=== PATIENT | female | born 1995 | race Caucasian/White ===

== ENCOUNTER 2016-12-18 04:39 | Outpatient (CLI) | payer OTHER ==
[~2016-12-18] VITALS: Ht 162.6 cm; Wt 87.3 kg
[~2016-12-18 04:39] MED LIST: CEPH-443 PO; CIPR500T4 PO; HYDR-3498 PO; IBUP-1542 PO; IBUP800T25 PO; ONDA4TAB35 PO
[2016-12-18] MEDS ORDERED: LACTATED RINGER'S 1,000 ML IV SCH (05:15)
[2016-12-18 05:29] VITALS: Ht 162.6 cm; Wt 87.3 kg
[2016-12-18 05:29] LABS: WHITE BLOOD COUNT 10.9 10^3/ul (4.8-10.8)
[2016-12-18 05:33] VITALS: BP 120/67; PULSE 121; RESP 18
[2016-12-18 05:36] LABS: ADD UMIC YES; UR ASCORBIC ACID NEGATIVE (NEGATIVE); UR BILIRUBIN (Dip) NEGATIVE (NEGATIVE); UR BLOOD (Dip) NEGATIVE (NEGATIVE); UR CLARITY SLIGHTLY CLOUDY (CLEAR); UR COLOR YELLOW (YELLOW); UR GLUCOSE (Dip) NEGATIVE (NEGATIVE); UR KETONES (Dip) NEGATIVE (NEGATIVE); UR LEUKOCYTE ESTERASE (Dip) TRACE Leu/ul (NEGATIVE); UR NITRITE (Dip) NEGATIVE (NEGATIVE); UR RBC 0 /HPF (0-5); UR SPECIFIC GRAVITY (Dip) 1.017 (1.003-1.030); UR SQUAMOUS EPITHELIAL CELL FEW /HPF (FEW); UR TOTAL PROTEIN (Dip) NEGATIVE (NEGATIVE); UR UROBILINOGEN (Dip) NEGATIVE (NEGATIVE)
[2016-12-18 05:56] LABS: HEMOGLOBIN 10.7 g/dl (12.0-16.0); MEAN CORPUSCULAR HEMOGLOBIN 31.5 pg (29.0-33.0); MEAN CORPUSCULAR HGB CONC 35.7 g/dl (32.0-37.0); MEAN CORPUSCULAR VOLUME 88.2 fl (82.0-101.0); PLATELET COUNT 123 10^3/UL (140-415)
[2016-12-18 05:57] LABS: MEAN PLATELET VOLUME 11.8 fl (7.4-10.4); POSITIVE DIFF @See below
[2016-12-18] MEDS ORDERED: ACETAMINOPHEN 325 MG TAB PO STA ×3 (07:02→07:24)
[2016-12-18 07:04] LABS: MONOCYTE # 0.3 10^3/ul (0.3-0.9); MONOCYTES % (M) 3 % (0-11)
--- NOTE | 2016-12-18 10:13 | RADRPT ---
PROCEDURE: Renal US. CLINICAL INDICATION: Left flank pain TECHNIQUE: Multiple sonographic images of the kidneys were obtained. The images were reviewed on a PACS workstation. COMPARISON: No prior studies are available for comparison. FINDINGS: The kidneys are well visualized. The right kidney measures 10.5 cm. The left kidney measures 10.3 cm . There are no focal areas of abnormal echogenicity. There is no evidence for obstructive uropathy. IMPRESSION: Unremarkable renal ultrasound. Incidental noted mild hepatosplenomegaly. RPTAT: QQ Physician Denise Date Time Electronically viewed and signed by Physician Denise on 12/18/2016 10:13 /
--- NOTE | 2016-12-18 10:41 | CONS ---
Date/Time of Note Date/Time of Note DATE: 12/18/16 TIME: 10:32 Consultation Date/Type/Reason Admit Date/Time December 18, 2016 OB triage consult This patient is a 21 years old 3 para 2 with estimated date of confinement of April 14, 2017 which makes her 23 weeks and 2 days. She came to triage complaining of flank pain since yesterday no complaint of contractions vaginal bleeding dysuria. On examination she is somewhat overweight with body weight of 87 pound on 0.3 kg. Her main complaint is back pain mostly on the left flank area On examination her general vital signs appear to be normal with blood pressure 120/67 pulse rate 122 and temperature 1 measurement was 100.8 and then in the second 1 Was came back with 98.4 heart tones around 140. Note pattern of labor or frequent contraction noted on the examination of this patient Laboratory Tests Test 12/18/16 05:00 12/18/16 05:14 Urine Color YELLOW Urine Clarity SLIGHTLY CLOUDY Urine pH 5.0 Urine Specific [place] 1.017 Urine Ketones NEGATIVEmg/dL Urine Nitrite NEGATIVEmg/dL Urine Bilirubin NEGATIVEmg/dL Urine Urobilinogen NEGATIVEmg/dL Urine Leukocyte Esterase TRACELeu/ul Urine Microscopic RBC 0/HPF Urine Microscopic WBC 2/HPF Urine Squamous Epithelial Cells FEW/HPF Urine Hemoglobin NEGATIVEmg/dL Urine Glucose NEGATIVEmg/dL Urine Total Protein NEGATIVEmg/dl White Blood Count 10.910^3/ul Red Blood Count 3.4010^6/ul Hemoglobin 10.7g/dl Hematocrit 30.0% Mean Corpuscular Volume 88.2fl Mean Corpuscular Hemoglobin 31.5pg Mean Corpuscular Hemoglobin Concent 35.7g/dl Red Cell Distribution Width 15.0% Platelet Count 35366^3/UL Mean Platelet Volume 11.8fl Neutrophils % % Segmented Neutrophils % (Manual) 88% Lymphocytes % % Lymphocytes % (Manual) 9% Monocytes % % Monocytes % (Manual) 3% Eosinophils % % Basophils % % Nucleated Red Blood Cells % 0.0/100WBC Neutrophils # 10^3/ul Absolute Lymphocytes (Manual) 0.910^3/ul Lymphocytes # 1.010^3/ul Monocytes # 0.310^3/ul Absolute Monocytes (Manual) 0.310^3/ul Eosinophils # 10^3/ul Basophils # 10^3/ul Nucleated Red Blood Cells # 10^3/ul Current Medications Medications (Trade) Dose Ordered Sig/Denise Route PRN Reason Start Time Stop Time Status Last Admin Dose Admin Lactated Ringer's (Lr) 1,000 ml @ 125 mls/hr Q8H IV 12/18/16 05:15 12/18/16 07:46 125 MLS/HR Acetaminophen (Tylenol Tab) 650 mg ONCE STAT PO 12/18/16 07:02 12/18/16 07:06 DC 12/18/16 07:47 650 MG Acetaminophen (Tylenol Tab) 650 mg ONCE STAT PO 12/18/16 07:14 12/18/16 09:18 DC Acetaminophen (Tylenol Tab) 650 mg ONCE STAT PO 12/18/16 07:24 12/18/16 09:18 DC Constitutional: No chills, No diaphoresis, No disoriented, No febrile, No improved, No no complaints, No other, No poor po, No requiring IVF, No requiring O2 Eyes: No discharge, No no complaints, No other, No pain, No redness, No visual change ENT: No bleeding, No congestion, No discharge, No dysphagia, No no complaints, No other, No pain, No sore throat Respiratory: No cough, No no complaints, No other, No pain, No pleuritic pain, No shortness of breath, No sputum, No wheezing Cardiovascular: No chest pain, No edema, No lightheadedness, No no complaints, No orthopenea, No other, No palpitations, No paroxysmal nocturnal dyspnea Gastrointestinal: other (No CVA tenderness), No blood, No constipation, No decreased appetite, No diarrhea, No flatus, No nausea, No no complaints, No pain, No passing stool, No vomiting Genitourinary: No bleeding, No discharge, No dysuria, No flank pain, No hematuria, No no complaints, No other Musculoskeletal: No back pain, No bone/joint pain, No neck pain, No no complaints, No other, No restricted range of motion, No swelling Skin: No bruising, No erythema, No laceration, No no complaints, No other, No pruritis, No rash, No skin lesions Neurologic: other (Knee-jerk reflexes normal), No confusion, No dizziness, No focal-weakness, No headache, No no complaints , No seizure, No syncope Endocrine: No dry skin, No no complaints, No other, No polydypsia, No polyuria , No temp intolerance Lymphatic: No adenopathy, No lymphadema, No no complaints, No other, No tender nodes Additional Comments On ultrasound study there was no evidence of hydro-nephrosis the spleen was reported slightly enlarged the urinalysis showed WBCs but no protein . Her CBC did show evidence of mild anemia W BC was about 10,000 Otherwise the urine and blood test as well as ultrasound were normal. Disposition. A prescription given for Macrobid 100 mg tablet to be taken twice a day. Clean- catch urine specimen was sent for culture and sensitivity. Patient is advised to continue taking her antibiotic and check for with her physician regarding the results of culture and sensitivity in 2 days to adjust the antibiotic treatment accordingly. Social History Smoking Status: Never smoker Exam/Review of Systems Vital Signs Vitals Vital Signs Date Time Temp Pulse Resp B/P Pulse Ox O2 Delivery O2 Flow Rate FiO2 12/18/16 05:33 98.4 121 18 120/67 Room Air Results Result Diagram: 12/18/16 0514 Results 24 hrs Laboratory Tests Test 12/18/16 05:00 12/18/16 05:14 Urine Color YELLOW Urine Clarity SLIGHTLY CLOUDY A Urine pH 5.0 Urine Specific [place] 1.017 Urine Ketones NEGATIVE Urine Nitrite NEGATIVE Urine Bilirubin NEGATIVE Urine Urobilinogen NEGATIVE Urine Leukocyte Esterase TRACE A Urine Microscopic RBC 0 Urine Microscopic WBC 2 Urine Squamous Epithelial Cells FEW Urine Hemoglobin NEGATIVE Urine Glucose NEGATIVE Urine Total Protein NEGATIVE White Blood Count 10.9 H Red Blood Count 3.40 L Hemoglobin 10.7 L Hematocrit 30.0 L Mean Corpuscular Volume 88.2 Mean Corpuscular Hemoglobin 31.5 Mean Corpuscular Hemoglobin Concent 35.7 Red Cell Distribution Width 15.0 H Platelet Count 123 L Mean Platelet Volume 11.8 H Neutrophils % Segmented Neutrophils % (Manual) 88 H Lymphocytes % Lymphocytes % (Manual) 9 L Monocytes % Monocytes % (Manual) 3 Eosinophils % Basophils % Nucleated Red Blood Cells % 0.0 Neutrophils # Absolute Lymphocytes (Manual) 0.9 Lymphocytes # 1.0 Monocytes # 0.3 Absolute Monocytes (Manual) 0.3 Eosinophils # Basophils # Nucleated Red Blood Cells # Medications Medications Current Medications Lactated Ringer's (Lr) 1,000 ml @ 125 mls/hr Q8H IV Last administered on 07:46; Admin Dose 125 MLS/HR; Start 12/18/16 at 05:15 JAY DEL ROSARIO MD Dec 18, 2016 10:41
--- NOTE | 2016-12-18 10:52 | TRIAGE ---
OB Triage Datetime Report Generated by CPN: 12/18/2016 10:51 Datetime: 12/18/2016 10:15 Stage of : OB Triage Labor Evaluation Frequency: 0 Monitor Mode: External Datetime: 12/18/2016 08:30 Stage of : OB Triage Temperature Route: Oral Labor Evaluation Frequency: 0 Monitor Mode: External Heart Rate FHR Baseline Rate: 150 Monitor Mode: Doppler Pain Assessment Pain Scale: 2 Pain Presence: Constant (Annotations: REDUCED DUE TO TYLENOL PER PT.) Pain Type: Dull; Ache Pain Location: Abdomen; Back; Head Pain Goal: 3 Pain Relief Measures: Comfort Measures (Annotations: MED TYLENOL WAS GIVEN AT 0747) Datetime: 12/18/2016 08:00 Stage of : OB Triage Datetime: 12/18/2016 06:50 Stage of : OB Triage Datetime: 12/18/2016 06:49 Labor Evaluation Frequency: 0 Monitor Mode: External Resting Tone [place]: Relaxed Datetime: 12/18/2016 06:07 Stage of : Labor Temperature Route: Oral Datetime: 12/18/2016 06:00 Stage of : OB Triage Labor Evaluation Frequency: NONE Monitor Mode: External Datetime: 12/18/2016 05:49 Stage of : OB Triage Temperature Route: Oral Datetime: 12/18/2016 05:25 EGA: 23.2 Datetime: 12/18/2016 05:23 Time of Arrival: 12/18/2016 04:40 Arrived By: Wheelchair Arrived From: Home Chief Complaint: PT C/O RIGH FLANK PAIN Movement: Present Contractions: Denies/Absent Rupture of Membranes: Denies Vaginal Bleeding: None Vaginal Discharge: Denies Recent Sexual Intercouse: Denies Abdominal Trauma: Not Applicable Patient Complaints: Back Pain Time Provider Notified: 12/18/2016 05:05 Provider Notified: uaje Initial Plan: TOCO AND DOPPLAR, NOTIFY MD Datetime: 12/18/2016 05:16 Stage of : OB Triage Maternal Assessment Level of Consciousness: Fully Conscious DTR's/Clonus: DTRs 2+; No Clonus Headache: Denies Blurred Vision: No Respiratory Effort: Unlabored; Regular Rhythm; Equal Expansion Breath Sounds, Left: Clear and Equal Breath Sounds, Right: Clear and Equal Nausea/Vomiting: Denies RUQ Epigastric Pain: Denies Lower Extremities Edema: None Upper Extremities Edema: None Facial Edema: None Temperature Route: Oral Fall Risk Assessment History of Falling: (0) No Secondary Diagnosis: (0) No Ambulatory Aid: (0) Bedrest/Nurse Assist IV Therapy: (0) No Gait: (0) Normal/Bedrest/Immobile Mental Status: (0) Oriented to Own Ability Fall Score: 0 Fall Risk Score Definition: No Risk: No action required Labor Evaluation Frequency: NONE Monitor Mode: External Heart Rate FHR Baseline Rate: 148 Monitor Mode: Doppler Pain Assessment Pain Scale: 8 Pain Presence: Constant Pain Type: Sharp Pain Location: Back Pain Goal: 3 Pain Relief Measures: Comfort Measures Datetime: 12/18/2016 05:15 Stage of : OB Triage
[2016-12-19] MEDS ORDERED: NITR-58 PO (17:11)
[2016-12-19] MEDS ORDERED: PREN1TAB79 PO (17:21)
== END 2016-12-18 10:33 | disposition home or self-care (01) ==
LOC: OBT 04:39 → L-D 04:40 → OBT 06:22 → L-D 06:22 → UNDOADMIN 06:25 → OBT 10:33
PROVIDERS: ATTEND Obstetrics & Gynecology
DX: O26.892 Other specified pregnancy related conditions, second trimester (principal); Z3A.23 23 weeks gestation of pregnancy
CPT/HCPCS: 36415; 76775; 81001; 85025; 87086; 96360; 96361; J7120; Z7500; Z7610; G0463

== ENCOUNTER 2016-12-19 16:36 | Inpatient (IN) | payer OTHER ==
[~2016-12-19] VITALS: Ht 154.9 cm; Wt 88.0 kg
[~2016-12-19 16:36] MED LIST changes: -CEPH-443 PO
[2016-12-19 16:55] VITALS: Ht 154.9 cm; Wt 88.0 kg
[2016-12-19 16:57] VITALS: BP 109/54; PULSE 120; RESP 20
[2016-12-19] MEDS ORDERED: NITR-58 PO (17:11)
[2016-12-19] MEDS ORDERED: LACTATED RINGER'S 1,000 ML IV SCH (17:21)
[2016-12-19] MEDS ORDERED: PREN1TAB79 PO (17:21)
--- NOTE | 2016-12-19 17:49 | TRIAGE ---
OB Triage Datetime Report Generated by CPN: 12/19/2016 17:49 Datetime: 12/19/2016 17:22 Arrived By: Ambulatory Arrived From: Home Datetime: 12/19/2016 17:03 Time of Arrival: 12/19/2016 16:45 EGA: 23.3 Arrived By: Wheelchair Arrived From: Home Chief Complaint: BI LATERAL FLANK PAIN AND FEVER Movement: Present Contractions: Denies/Absent Rupture of Membranes: Denies Vaginal Bleeding: None Vaginal Discharge: Denies Recent Sexual Intercouse: Denies Abdominal Trauma: Not Applicable Patient Complaints: Fever; Other Provider Notified: DR LEA Initial Plan: EFM AND CALL DR LEA Datetime: 12/19/2016 17:02 Level of Consciousness: Fully Conscious DTR's/Clonus: DTRs 2+; No Clonus Headache: Denies Blurred Vision: No Respiratory Effort: Unlabored; Regular Rhythm; Equal Expansion Breath Sounds, Left: Clear and Equal Breath Sounds, Right: Clear and Equal Nausea/Vomiting: Denies RUQ Epigastric Pain: Denies Facial Edema: None Temperature Route: Axillary History of Falling: (0) No Secondary Diagnosis: (0) No Ambulatory Aid: (0) Bedrest/Nurse Assist IV Therapy: (0) No Gait: (0) Normal/Bedrest/Immobile Mental Status: (0) Oriented to Own Ability Fall Score: 0 Fall Risk Score Definition: No Risk: No action required Datetime: 12/19/2016 16:42 Level of Consciousness: Fully Conscious DTR's/Clonus: DTRs 2+ Headache: Denies Blurred Vision: No Nausea/Vomiting: Denies RUQ Epigastric Pain: Denies Facial Edema: None Frequency: MILD IRREG FHR Baseline Rate: 170 FHR Baseline Changes: Tachycardia Variability: Minimal - Undetectable to <=5 bpm Pain Scale: 8 Pain Presence: Constant Pain Type: Sharp Pain Location: Right Flank; Left Flank Membrane Status: Intact Datetime: 12/18/2016 05:25 EGA: 23.2
--- NOTE | 2016-12-19 18:04 | HP ---
Date/Time of Note Date/Time of Note DATE: 12/19/16 TIME: 17:47 OB - History Hx of Present Free Text/Dictation 21 y/o ADMITTED WITH CHIEF COMPLAIN OF LOW BACK PAIN VS BP 109/54 P120 R22 TEMP 99,[id number] Chief Complaint: LOW BACK PAIN ,CHILLS Estimated Due Date: Apr 14, 2017 : 3 Para: 2 Care: Limited Care Ultrasounds: Other ([place]) Obstetrical Complications: None Medical Complications: None Past Family/Social History * Past Medical, Surgical, Family and Obstetric Histories reviewed from chart. Rubella: unknown RPR/VDRL: Unknown GBS Status: Unknown HBsAG: Unknown OB Admission Exam Vital Signs Vital Signs Vital Signs Date Time Temp Pulse Resp B/P Pulse Ox O2 Delivery O2 Flow Rate FiO2 12/19/16 16:57 99.1 120 20 109/54 98 Room Air Physical Exam HEENT: WNL Heart: Rhythm Normal Lungs: Clear, Equal Abdomen: Abnormal (BILATERAL FLANK PAIN) Extremities: Normal Reflexes: Normal Cervical Dilatation: None Membranes: Intact Heart Rate: 150's Varibility: Moderate OB Assessment/Plan Reason for admission: other (LOW BACK PAIN ,CHILLS ) Plan: Other (21Y/O 23 WEEKS .NARDA PECTED PYLONEPHRITIS ADMITTED FOR TRAETMENT OF UTI) YU LEA MD Dec 19, 2016 18:00
[2016-12-19] MEDS ORDERED: morphine 4 MG/ML VIAL IV STA (18:27)
[2016-12-19] MEDS: SOD CHLORIDE 0.9% 1,000 ML IV SCH (18:31)
[2016-12-19] MEDS: CEFTRIAXONE 2 GM/50 ML (PMX) 50 ML IVPB SCH (18:31)
[2016-12-19] MEDS: ACETAMINOPHEN 325 MG TAB PO PRN ×2 (18:38→22:30)
[2016-12-19 18:40] LABS: ABNORMAL IP MESSAGE 1; BASOPHILS % 0.1 % (0.0-2.0); HEMATOCRIT 26.2 % (37.0-47.0); HEMOGLOBIN 9.3 g/dl (12.0-16.0); LYMPHOCYTES # 0.6 10^3/ul (0.8-2.9); MEAN CORPUSCULAR HEMOGLOBIN 31.3 pg (29.0-33.0); MEAN CORPUSCULAR HGB CONC 35.5 g/dl (32.0-37.0); MEAN CORPUSCULAR VOLUME 88.2 fl (82.0-101.0); MEAN PLATELET VOLUME 11.7 fl (7.4-10.4); MONOCYTE # 0.3 10^3/ul (0.3-0.9); MONOCYTES % 3.3 % (0.0-11.0); NEUTROPHILS % 89.2 % (39.0-77.0); PLATELET COUNT 97 10^3/UL (140-415); RED BLOOD COUNT 2.97 10^6/ul (4.20-5.40); RED CELL DISTRIBUTION WIDTH 14.9 % (11.5-14.5); WHITE BLOOD COUNT 7.9 10^3/ul (4.8-10.8)
[2016-12-19 18:43] LABS: POSITIVE DIFF @See below
[2016-12-19 18:52] LABS: ADD UMIC NO; UR ASCORBIC ACID NEGATIVE (NEGATIVE); UR BILIRUBIN (Dip) NEGATIVE (NEGATIVE); UR BLOOD (Dip) NEGATIVE (NEGATIVE); UR CLARITY CLEAR (CLEAR); UR COLOR YELLOW (YELLOW); UR GLUCOSE (Dip) NEGATIVE (NEGATIVE); UR KETONES (Dip) 1+ mg/dL (NEGATIVE); UR LEUKOCYTE ESTERASE (Dip) NEGATIVE Leu/ul (NEGATIVE); UR NITRITE (Dip) NEGATIVE (NEGATIVE); UR SPECIFIC GRAVITY (Dip) 1.013 (1.003-1.030); UR TOTAL PROTEIN (Dip) NEGATIVE (NEGATIVE); UR UROBILINOGEN (Dip) NEGATIVE (NEGATIVE)
[2016-12-20] MEDS: SOD CHLORIDE 0.9% 1,000 ML IV SCH ×3 (02:09→18:17)
[2016-12-20] MEDS: ACETAMINOPHEN 325 MG TAB PO PRN ×3 (04:08→23:55)
--- NOTE | 2016-12-20 09:11 | QN ---
Documentation Comment afebrile ,but still getting chills, last one at 0400 today,complaining of low back pain ,left cva tenderness ,c/s report not conclusive .currently on Rocephin 2gm q d.,perinatology consult requested. YU LEA MD Dec 20, 2016 09:10
[2016-12-20] MEDS: GENTAMICIN 80 MG/NS (PMX) 50 ML IVPB SCH ×2 (10:00→18:57)
[2016-12-20] MEDS: PRENATAL VITAMIN PO SCH (10:07)
[2016-12-20] MEDS: ONDANSETRON 4 MG INJ IV PRN (10:59)
[2016-12-20 15:39] LABS: ALBUMIN/GLOBULIN RATIO 1.15; BILIRUBIN,INDIRECT 0.9 mg/dl (0-1.1); BILIRUBIN,TOTAL 0.9 mg/dl (0.2-1.3); CALCIUM 7.9 mg/dl (8.4-10.2); CREATININE 0.6 mg/dl (0.44-1.00); POTASSIUM 3.6 mmol/L (3.5-5.1); TOTAL PROTEIN 5.6 g/dl (6.1-8.1)
[2016-12-20] MEDS: CEFTRIAXONE 2 GM/50 ML (PMX) 50 ML IVPB SCH (17:54)
[2016-12-21] MEDS: GENTAMICIN 80 MG/NS (PMX) 50 ML IVPB SCH ×3 (01:54→17:45)
[2016-12-21] MEDS: SOD CHLORIDE 0.9% 1,000 ML IV SCH ×4 (03:32→22:25)
[2016-12-21] MEDS: PRENATAL VITAMIN PO SCH (09:22)
[2016-12-21] MEDS: CEFTRIAXONE 2 GM/50 ML (PMX) 50 ML IVPB SCH (17:05)
--- NOTE | 2016-12-21 17:23 | QN ---
Documentation Comment afebrile no more low back or flank pain UA culture preliminary negative currently on ROCEPHIN responded well we wait for final urine culture and sensitivity result YU LEA MD Dec 21, 2016 17:23
[2016-12-21] MEDS: ACETAMINOPHEN 325 MG TAB PO PRN (18:44)
--- NOTE | 2016-12-21 18:54 | CONS ---
DATE OF ADMISSION: 12/19/2016 DATE OF CONSULTATION: 12/21/2016 HISTORY OF PRESENT ILLNESS: The patient is a 21-year-old, G2, P1, at 23 weeks and 5 days who presented the day before yesterday with complaint of back pain, fever and chills. She was diagnosed presumptively with pyelonephritis and started on Rocephin and gentamicin. Her last fever was on December 19 at 7 p.m., since then she has been afebrile. Today, however, she still complains of a CVA, back pain, left more than right. But overall, she states that it is not worse today. PAST MEDICAL HISTORY/SURGICAL HISTORY/OB HISTORY: Negative. REVIEW OF SYSTEMS: Reviewed and all are negative, except was mentioned above. PHYSICAL EXAMINATION: VITAL SIGNS: Temperature is 98.7. ABDOMEN: CVA tenderness bilaterally, left more than right. LABORATORY: Urine cultures, the first urine culture showed that there is contamination. There for cath UA and culture was ordered again yesterday, those results are pending. OB: heart tone is reassuring for gestational age. She has no contractions. IMPRESSION: 1. Intrauterine at 26 weeks and 5 days with pyelonephritis on Rocephin and gentamicin, febrile for currently less than 48 hours, however costal vertebral angle (CVA) tenderness still persists. 2. Urine culture pending. RECOMMENDATIONS: 1. Follow up on the urine culture results and sensitivities and change antibiotic if required. 2. The patient is only to be discharged home after she is 48 hours afebrile and asymptomatic. 3. Upon discharge, patient is to have a UA and culture every trimester. 4. Also please check creatinine just because she has been given gentamicin. Dictated By: Dulce Magana MD /elias/justyna /Document#: [id number]
[2016-12-22] MEDS: GENTAMICIN 80 MG/NS (PMX) 50 ML IVPB SCH ×3 (02:04→17:59)
[2016-12-22] MEDS: SOD CHLORIDE 0.9% 1,000 ML IV SCH ×2 (07:58→15:49)
[2016-12-22] MEDS: ONDANSETRON 4 MG INJ IV PRN (08:57)
[2016-12-22] MEDS: PRENATAL VITAMIN PO SCH (09:48)
--- NOTE | 2016-12-22 10:20 | QN ---
Documentation Comment afebrile vss no more complain of back pain,in general feels better, preliminary urine culture day 2 ,no growth YU LEA MD Dec 22, 2016 10:20
--- NOTE | 2016-12-22 16:57 | PN ---
Triage Information Date/Time Dec 19, 2016 at 17:15 Reason for visit: Uterine contractions Weeks of Gestation 23weeks /Para Diabetes: none Objective Vital Signs Date Time Temp Pulse Resp B/P Pulse Ox O2 Delivery O2 Flow Rate FiO2 12/19/16 16:57 99.1 120 20 109/54 98 Room Air Intake and Output 12/21/16 12/21/16 12/22/16 15:00 23:00 07:00 Intake Total 3110 ml 625 ml Output Total 1700 ml 1000 ml 500 ml Balance 1410 ml -375 ml -500 ml Heart Rate: 130's Contractions: >10 Minutes Apart Results/Medications Result Diagram: 12/19/16 1823 12/20/16 1432 Medications Current Medications Prenat Multivit/ [place]/Iron/Folic Ac () 1 tab DAILY PO Last administered on 12/22/16 09:48; Admin Dose 1 TAB; Start 12/20/16 at 09:00 Acetaminophen 650 mg 650 mg Q4H PRN PO PAIN AND OR ELEVATED TEMP Last administered on 12/21/16 18:44; Admin Dose 650 MG; Start 12/19/16 at 17:30 Ceftriaxone Sodium 50 ml @ 100 mls/hr Q24H IVPB Last administered on 17:05; Admin Dose 100 MLS/HR; Start 12/19/16 at 17:30 Sodium Chloride 1,000 ml @ 125 mls/hr Q8H IV Last administered on 12/22/16 15 :49; Admin Dose 125 MLS/HR; Start 12/19/16 at 18:00 Gentamicin Sulfate (Gentamicin) 50 ml @ 104 mls/hr Q8H IVPB Last administered on 12/22/16 09:49; Admin Dose 104 MLS/HR; Start 12/20/16 at 10:00 Ondansetron HCl (Zofran Inj) 4 mg Q6H PRN IV NAUSEA AND/OR VOMITING Last administered on 12/22/16 08:57; Admin Dose 4 MG; Start 12/20/16 at 10:30 Disposition: Discharge YU LEA MD Dec 22, 2016 16:57
[2016-12-22] MEDS: CEFTRIAXONE 2 GM/50 ML (PMX) 50 ML IVPB SCH (17:02)
[2016-12-22] MEDS: ACETAMINOPHEN 325 MG TAB PO PRN (19:35)
[2016-12-23] MEDS: SOD CHLORIDE 0.9% 1,000 ML IV SCH ×2 (00:55→09:14)
[2016-12-23] MEDS: GENTAMICIN 80 MG/NS (PMX) 50 ML IVPB SCH ×2 (02:10→10:00)
[2016-12-23] MEDS: PRENATAL VITAMIN PO SCH (09:11)
--- NOTE | 2016-12-23 09:47 | PDOCDIS ---
Discharge Instructions CONDITION Patient Condition: Good HOME CARE INSTRUCTIONS: Diet Instructions: Regular ACTIVITY: Activity Restrictions: No Restrictions Bathing Restrictions: Shower FOLLOW UP/APPOINTMENTS Follow-up Plan APPOINTMENT CLINIC IN1 WEEK REFERRALS Agency Name and Phone Number: [facility] OTHER ORDERS: Other Orders: DISCHARGED HOME WITH RX MACROBID BID BID RECOMMENDED FOLLOWUP AT THE CLINIC IN ONE WEEK YU LEA MD Dec 23, 2016 09:47
--- NOTE | 2016-12-23 09:54 | DS ---
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 Procedures TREATMENT FOR UTI Hx of Present Illness SUSPECTED UTI Hospital Course SATISFACTORY Home Meds Reported Medications Vit W-Ca,Fe,FA(<1 mg) ( Vitamins) 1 Each Tablet, 1 EACH PO, TAB 12/19/16 Nitrofurantoin Monohyd Macrocr* (Macrobid*) 100 Mg Capsr, 100 MG PO BID, CAP 12/19/16 Discontinued Scripts Cephalexin* (Keflex*) 500 Mg Capsule, 500 MG PO QID for 7 Days, CAP Prov:HE DE LOS SANTOS PA-C 09/25/15 Ibuprofen* (Motrin*) 600 Mg Tab, 600 MG PO Q6, #30 TAB Prov:HE DE LOS SANTOS PA-C 09/25/15 Ibuprofen* (Motrin*) 600 Mg Tab, 600 MG PO Q6, #14 TAB Prov:DAV OLSON MD 03/15/15 Follow-up Plan APPOINTMENT CLINIC IN1 WEEK,RECOMMENCED URINE C/S IN EVERY TRIMESTER Primary Care Provider Henny Goins Time spent on discharge: < 30 minutes YU LEA MD Dec 23, 2016 09:54
== END 2016-12-23 10:25 | disposition home or self-care (01) | DRG 781 ==
LOC: OBT 16:36 → L-D 16:37 → OBG 17:15 → L-D 17:15 → OBT 17:15
PROVIDERS: ADMIT Obstetrics & Gynecology; ATTEND Obstetrics & Gynecology
DX: O23.42 Unspecified infection of urinary tract in pregnancy, second trimester (principal); Z3A.23 23 weeks gestation of pregnancy
CPT/HCPCS: 80053; 81003; 82565; 85025; 87040; 87086; A4310; G0463; J1580; J2270; J2405; J7030; J7120

== ENCOUNTER 2017-04-05 10:44 | Outpatient (CLI) | END 2017-04-05 13:00 | disposition home or self-care (01) ==

== ENCOUNTER 2017-04-16 01:45 | Inpatient (IN) | END 2017-04-18 14:37 | disposition home or self-care (01) | DRG 775 ==

== ENCOUNTER 2017-05-18 06:51 | Emergency (ER) | END 2017-05-18 09:15 | disposition home or self-care (01) ==

== ENCOUNTER 2017-05-18 18:16 | Emergency (ER) | END 2017-05-19 17:24 | disposition short-term general hospital (02) ==

== ENCOUNTER 2018-05-10 16:06 | Inpatient (IN) | payer OTHER ==
[~2018-05-10] VITALS: Ht 162.6 cm; Wt 84.5 kg
[~2018-05-10 16:06] MED LIST changes: +ACET500C5 PO; +CEPH-443 PO; -CIPR500T4 PO; -HYDR-3498 PO; -IBUP-1542 PO; -IBUP800T25 PO; -ONDA4TAB35 PO
[2018-05-10 18:19] VITALS: BP 108/69; PULSE 106; RESP 20
[2018-05-10] MEDS ORDERED: PREN1TAB13 PO (18:23)
[2018-05-10] MEDS ORDERED: FER325 PO (18:24)
[2018-05-10] MEDS ORDERED: CALC-143 PO (18:25)
[2018-05-10 18:27] VITALS: Ht 162.6 cm; Wt 84.5 kg
[2018-05-10] MEDS: DEXTROSE 5%-LR 1,000 ML IV SCH (19:06)
[2018-05-10] MEDS ORDERED: LACTATED RINGER'S 1,000 ML IV PRN (21:53)
[2018-05-10] MEDS ORDERED: OXYTOCIN 30 UNITS/LR 500 ML IV PRN (22:00)
[2018-05-10] MEDS ORDERED: MISOPROSTOL 50 MCG CAPSULE VAG ONE (22:00)
[2018-05-10] MEDS ORDERED: IBUPROFEN 600 MG TAB PO PRN (22:00)
[2018-05-10] MEDS ORDERED: LIDOCAINE 1% (MPF) 30 ML INJ INJ PRN (22:00)
[2018-05-10] MEDS ORDERED: CARBOPROST 250 MCG INJ IM PRN (22:00)
[2018-05-10] MEDS ORDERED: OXYTOCIN 30 UNITS/LR 500 ML IV SCH ×2 (22:00)
[2018-05-10] MEDS ORDERED: BUTORPHANOL 2 MG INJ IV PRN (22:00)
[2018-05-10] MEDS ORDERED: METHYLERGONOVINE 0.2 MG INJ IM PRN (22:00)
[2018-05-10] MEDS ORDERED: MISOPROSTOL 200 MCG TAB PR PRN (22:00)
[2018-05-10] MEDS ORDERED: AMPICILLIN 2 GM/NS (PMX) 100 ML IV ONE (22:00)
[2018-05-10] MEDS: LACTATED RINGER'S 1,000 ML IV SCH (23:31)
[2018-05-10] MEDS: URSODIOL 300 MG CAP PO SCH (23:32)
--- NOTE | 2018-05-11 00:30 | HP ---
Date/Time of Note Date/Time of Note DATE: 05/11/18 TIME: 00:24 OB - History Hx of Present Free Text/Dictation May 10, 2018 : 4 Para: 3 Spontaneous : 0 Therapeutic : 0 Care: Good Care Other Concerns: 22-year-old with IUP at 38 weeks and 4 days presents with complaint of nausea, vomiting and diarrhea as well as decreased movement x 2 weeks. records available and reviewed. Patient denies any fever or chills. Review of records showed past OB history significant for history of cholestasis of . Patient reports significant itching of whole body as well as palms and soles. Due to cholestasis of patient will be admitted for induction of labor Past Family/Social History * Past Medical, Surgical, Family and Obstetric Histories reviewed from chart. Blood Type: O- Rubella: immune RPR/VDRL: Negative GBS Status: Positive HBsAG: Negative OB Admission Exam Vital Signs Vital Signs Vital Signs Date Temp Pulse Resp B/P (MAP) Pulse Ox O2 O2 Flow FiO2 Time Delivery Rate 05/10/18 98.3 106 20 108/69 Room Air 18:19 (82) Physical Exam HEENT: WNL Lungs: Clear Abdomen: WNL Extremities: Normal Cervical Dilatation: None Effacement: 0% Membranes: Intact Accelerations: Accelerations Present Decelerations: Variable Decelerations Intensity: Mild Last 72 hours Lab Results CBC & BMP 05/10/18 22:22 OB Assessment/Plan Other Assessment: IUP at 38 weeks and 4 days Nausea/ Vomiting/ diarrhea. Asymptomatic in triage Vitals stable, afebrile. Likely Viral gastroenteritis Decreased movement, testing reassuring Body itching including soles and plams. worsened, Suspected cholestasis of . Discussed regarding induction of labor due to risk to the baby. Risks and benefits discussed. Desires to proceed Cervix unfavourable. Consider cytotec for cervical ripening Start Ursodiol 300 mg PO TID RH negative. s/p Rhogam GBS positive, Start Ampicillin for GBS prophylaxis Ancitipate Plan of care discussed with the patient and ROSAS CENTENO MD May 11, 2018 00:30
--- NOTE | 2018-05-11 02:20 | TRIAGE ---
OB Triage Datetime Report Generated by CPN: 05/11/2018 02:19 Datetime: 05/11/2018 02:00 Labor Evaluation Frequency: 2-7 Monitor Mode: External Duration (sec)2399: 60-120 Quality: Mild Pattern: Normal: <= 5 Contractions in 10 Minutes Resting Tone Ogilvie: Relaxed Heart Rate FHR Baseline Rate: 135 Monitor Mode: External US Variability: Moderate 6-25 bpm Accelerations: 15X15 Decelerations: Late Category: Category II Datetime: 05/11/2018 01:00 Labor Evaluation Frequency: occasional Monitor Mode: External Duration (sec)2399: 60-90 Quality: Mild Pattern: Normal: <= 5 Contractions in 10 Minutes Resting Tone Ogilvie: Relaxed Heart Rate FHR Baseline Rate: 135 Monitor Mode: External US Variability: Moderate 6-25 bpm Accelerations: 15X15 Decelerations: None Category: Category I Datetime: 05/10/2018 23:59 Labor Evaluation Frequency: x2 Monitor Mode: External Monitor Mode: External Duration (sec)2399: 60-90 Quality: Mild Pattern: Normal: <= 5 Contractions in 10 Minutes Resting Tone Ogilvie: Relaxed Monitor Mode: External US Monitor Mode: External US Comments: loss of contact Datetime: 05/10/2018 23:34 Maternal Assessment Level of Consciousness: Fully Conscious Headache: Generalized Blurred Vision: No Respiratory Effort: Unlabored; Regular Rhythm; Equal Expansion Breath Sounds, Left: Clear and Equal Breath Sounds, Right: Clear and Equal Nausea/Vomiting: Denies RUQ Epigastric Pain: Denies Pain Assessment Pain Scale: 4 Pain Presence: Constant Pain Type: Ache Pain Location: Head Pain Goal: 2 Pain Relief Measures: Comfort Measures Datetime: 05/10/2018 23:31 Assessment Type: Admission Assessment Vaginal Bleeding: Normal Show Maternal Assessment Level of Consciousness: Fully Conscious DTR's/Clonus: DTRs 2+; No Clonus Headache: Denies Blurred Vision: No Respiratory Effort: Unlabored; Regular Rhythm; Equal Expansion Breath Sounds, Left: Clear and Equal Breath Sounds, Right: Clear and Equal Nausea/Vomiting: Denies RUQ Epigastric Pain: Denies Lower Extremities Edema: None Degree: None Upper Extremities Edema: None Degree: None Facial Edema: None Fall Risk Assessment History of Falling: (0) No Secondary Diagnosis: (0) No Ambulatory Aid: (0) Bedrest/Nurse Assist IV Therapy: (20) Yes Gait: (0) Normal/Bedrest/Immobile Mental Status: (0) Oriented to Own Ability Fall Score: 20 Fall Risk Score Definition: No Risk: No action required Datetime: 05/10/2018 23:11 Monitor Mode: External Monitor Mode: External US Datetime: 05/10/2018 23:00 Labor Evaluation Frequency: occasional Monitor Mode: External Duration (sec)2399: 60-90 Quality: Mild Pattern: Normal: <= 5 Contractions in 10 Minutes Resting Tone Ogilvie: Relaxed Heart Rate FHR Baseline Rate: 115 Monitor Mode: External US Variability: Moderate 6-25 bpm Accelerations: Prolonged Decelerations: Variable Category: Category II Datetime: 05/10/2018 22:00 Labor Evaluation Frequency: x5 Monitor Mode: External Duration (sec)2399: 60-90 Quality: Mild Pattern: Normal: <= 5 Contractions in 10 Minutes Resting Tone Ogilvie: Relaxed Heart Rate FHR Baseline Rate: 115 Monitor Mode: External US Variability: Moderate 6-25 bpm Accelerations: 15X15 Decelerations: None Category: Category I Datetime: 05/10/2018 21:49 Membrane Status: Intact Datetime: 05/10/2018 21:00 Labor Evaluation Frequency: INDETERMINATE Monitor Mode: External Pattern: Normal: <= 5 Contractions in 10 Minutes Heart Rate FHR Baseline Rate: 115 Monitor Mode: External US Variability: Moderate 6-25 bpm Accelerations: 15X15 Decelerations: None Category: Category I Datetime: 05/10/2018 20:52 Vaginal Exam Dilatation (cms): 1.5 Effacement (%): 50 Station: -3 Cervix, Consistency: Moderate Cervix, Position: Midposition Datetime: 05/10/2018 20:00 Labor Evaluation Frequency: X2 Monitor Mode: External Duration (sec)2399: 80-90 Quality: Mild Pattern: Normal: <= 5 Contractions in 10 Minutes Resting Tone Ogilvie: Relaxed Heart Rate FHR Baseline Rate: 120 Monitor Mode: External US Variability: Moderate 6-25 bpm Accelerations: 15X15 Decelerations: None Category: Category I Datetime: 05/10/2018 18:47 Labor Evaluation Frequency: X1 Monitor Mode: External Duration (sec)2399: 80 Quality: Mild Pattern: Normal: <= 5 Contractions in 10 Minutes Resting Tone Ogilvie: Relaxed Heart Rate FHR Baseline Rate: 130 Monitor Mode: External US FHR Baseline Changes: No Baseline Change Variability: Moderate 6-25 bpm Accelerations: 15X15 Decelerations: None Category: Category I Pain Assessment Pain Scale: 7 Pain Presence: Intermittent Pain Type: Contraction Pain Location: Abdomen Pain Goal: 2 Datetime: 05/10/2018 18:15 Stage of : OB Triage Assessment Type: Triage Time of Arrival: 05/10/2018 15:48 EGA: 38.4 Arrived By: Ambulatory Arrived From: Home Chief Complaint: DIARRHEA, VOMITING, DIZZYNESS FOR 2 DAYS, LOWER ABDOMINAL PAIN TODAY, DECREASED FE CELINA MOVEMENT Movement: Decreased Contractions: Irregular Rupture of Membranes: Denies Vaginal Bleeding: None Vaginal Discharge: Present Recent Sexual Intercouse: Denies Abdominal Trauma: Not Applicable Patient Complaints: Vomiting; Dizziness Time Provider Notified: 05/10/2018 18:38 Provider Notified: DR. RAHMAN Initial Plan: BPP, EFM Maternal Assessment Level of Consciousness: Fully Conscious DTR's/Clonus: DTRs 2+; No Clonus Headache: Denies Blurred Vision: No Respiratory Effort: Unlabored; Regular Rhythm; Equal Expansion Nausea/Vomiting: Denies RUQ Epigastric Pain: Denies Degree: None Upper Extremities Edema: None Degree: None Facial Edema: None Temperature Route: Axillary Fall Risk Assessment History of Falling: (0) No Secondary Diagnosis: (0) No Ambulatory Aid: (0) Bedrest/Nurse Assist IV Therapy: (0) No Gait: (0) Normal/Bedrest/Immobile Mental Status: (0) Oriented to Own Ability Fall Score: 0 Fall Risk Score Definition: No Risk: No action required
[2018-05-11] MEDS: DEXTROSE 5%-LR 1,000 ML IV SCH (02:45)
[2018-05-11] MEDS: AMPICILLIN 1 GM/NS (PMX) 50 ML IV SCH ×4 (03:32→16:47)
[2018-05-11] MEDS: MISOPROSTOL 50 MCG CAPSULE PO PRN ×2 (03:33→08:15)
[2018-05-11] MEDS: LACTATED RINGER'S 1,000 ML IV SCH ×2 (06:13→19:07)
[2018-05-11] MEDS: URSODIOL 300 MG CAP PO SCH ×2 (09:05→14:49)
[2018-05-11] MEDS ORDERED: OXYTOCIN 30 UNITS/LR 500 ML IV SCH (12:30)
--- NOTE | 2018-05-11 19:06 | PREAC ---
Date/Time of Note Date/Time of Note DATE: 05/11/18 TIME: 19:05 Anesthesia Eval and Record Evaluation Time Pre-Procedure Interview DATE: 05/11/18 TIME: 19:05 Age 22 Sex female NPO: 8 hrs Preoperative diagnosis in labor Planned procedure Labor epidural Past Medical History Past Medical History: Includes Heme: Anemia Surgery & Anesthesia Issues No known issue Meds Anticoagulation: No Beta Manny within 24 hr: No Reason Beta Manny not given: Pt. not on B-Manny Active Scripts Cephalexin* (Keflex*) 500 Mg Capsule, 500 MG PO QID for 7 Days, CAP Prov:DAV OLSON MD 05/18/17 Acetaminophen* (Tylophen*) 500 Mg Capsule, 1 CAP PO Q6H PRN for PAIN AND OR ELEVATED TEMP, #20 CAP Prov:DAV OLSON MD 05/18/17 Reported Medications Calcium Citrate/Vitamin D (Citracal-Vitamin D 200 MG-250) 1 Each Tablet, 1 EACH PO DAILY, TAB 05/10/18 Ferrous Sulfate* (Ferrous Sulfate*) 325 Mg Tabec, 325 MG PO DAILY, TAB 05/10/18 Pnv95/Ferrous Fumarate/FA ( Vitamins Tablet) 1 Each Tablet, 1 EACH PO DAILY, TAB 05/10/18 Current Medications Dextrose/Lactated Ringer's 1,000 ml @ 125 mls/hr Q8H IV Last administered on 05/10/18at 19:06; Admin Dose 125 MLS/HR; Start 05/10/18 at 18:45 Lactated Ringer's 1,000 ml @ 125 mls/hr Q8H IV Last administered on 05/11/18at 06:13; Admin Dose 125 MLS/HR; Start 05/10/18 at 21:53 Ampicillin 50 ml @ 100 mls/hr Q4H IV Last administered on 05/11/18at 16:47; Admin Dose 100 MLS/HR; Start 05/11/18 at 02:00 Butorphanol Tartrate (Stadol) 2 mg Q2H PRN IV .PAIN; Start 05/10/18 at 22:00 Lidocaine (Xylocaine 1% (Mpf)) 30 ml ONCE PRN INJ .EPISIOTOMY; Start 05/10/18 at 22:00 Oxytocin/Lactated Ringer's 500 ml @ 500 mls/hr ONCE POST IV ; Start 05/10/18 at 22:00 Oxytocin/Lactated Ringer's 500 ml @ 125 mls/hr POST IV ; Start 05/10/18 at 22:00 Ibuprofen (Motrin) 600 mg ONCE PRN PO .PAIN 1-5; Start 05/10/18 at 22:00 Lactated Ringer's 1,000 ml @ 2,000 mls/hr Q30M PRN IV .ANESTHESIA; Start 05/10/18 at 21:53 Oxytocin/Lactated Ringer's 500 ml @ 0 mls/hr ONCE PRN IV .VAGINAL BLEEDING Last administered on 05/11/18at 12:44; Admin Dose 1 MLS/HR; Start 05/10/18 at 22:00 Methylergonovine Maleate (Methergine) 0.2 mg ONCE PRN IM .VAGINAL BLEEDING; Start 05/10/18 at 22:00 Carboprost Tromethamine (Hemabate) 250 mcg ONCE PRN IM .VAGINAL BLEEDING; Start 05/10/18 at 22:00 Misoprostol (Cytotec) 1,000 mcg ONCE PRN UT .VAGINAL BLEEDING; Start 05/10/18 at 22:00 Ursodiol (Actigall) 300 mg TID PO Last administered on 05/11/18at 14:49; Admin Dose 300 MG; Start 05/10/18 at 22:00 Misoprostol (Cytotec 50 Mcg Capsule) 50 mcg Q4H PRN PO CERVICAL RIPENING Last administered on 05/11/18at 08:15; Admin Dose 50 MCG; Start 05/11/18 at 02:30 Oxytocin/Lactated Ringer's 500 ml @ 0 mls/hr Q0M IV ; Start 05/11/18 at 12:30 Meds reviewed: Yes Allergies Coded Allergies: No Known Allergy (Unverified , 05/18/17) Allergies Reviewed: Yes Labs/Studies Labs Reviewed: Reviewed by anesthesiologist Result Diagram: 05/10/182 Laboratory Tests 05/10/18 22:22 Blood Bank Test 05/10/18 22:22 Antibody Identification Completed Antibody Screen POSITIVE Blood Type O NEGATIVE Rh Immune Globulin Candidate NO test: Positive Pre-procedure Exam Last vitals Vital Signs Date Temp Pulse Resp B/P (MAP) Pulse Ox O2 O2 Flow FiO2 Time Delivery Rate 05/10/18 98.3 106 20 108/69 Room Air 18:19 (82) Airway: Adequate mouth opening Mallampati: Mallampati II Teeth: Normal Lung: Normal Heart: Normal ASA Physical Status ASA physical status: 2 Emergency: None Planned Anesthetic Neuraxial: Epidural Pre-operative Attestations Prior to commencing anesthesia and surgery, the patient was re-evaluated, there was verification of: *The patient's identity *The results of appropriate recent lab work and preoperative vital signs *The above evaluation not changing prior to induction *Anesthetic plan, risk benefits, alternative and complications discussed with patient/family; questions answered; patient/family understands, accepts and wishes to proceed. HERB EVERETT MD May 11, 2018 19:06
[2018-05-11] MEDS ORDERED: NALOXONE (0.4 MG/ML) INJ IV PRN (19:30)
[2018-05-11] MEDS ORDERED: FENTAnyl 2MCG/ML-ROPIV 0.2% 100 ML BAG EPI SCH (19:30)
[2018-05-11] MEDS ORDERED: ONDANSETRON 4 MG INJ IV PRN (19:30)
[2018-05-11] MEDS ORDERED: DIPHENHYDRAMINE 50 MG INJ IV PRN (19:30)
[2018-05-11] MEDS ORDERED: EPHEDrine SULFATE 50 MG/5 ML SYG IV PRN (19:30)
--- NOTE | 2018-05-11 22:38 | LDN ---
Date/Time of Note Date/Time of Note DATE: 05/11/18 TIME: 22:36 Delivery Summary of normal female Weeks of Gestation 38w6d Placenta Delivered: Spontaneously Meconium: none Episiotomy: No Perineal laceration: 0 Anesthesia type: Epidural Estimated blood loss: 200 Sponge & Needle done & correct: Yes All needle counts correct: Yes Any foreign bodies felt in the: No Delivery Information Sex Infant Sex: female Apgars 1 Minute: 9 5 Minute: 9 Suctioning Nose & mouth suctioned at nhung: Yes Delee suction performed: No Umbilical Cord Umbilical cord with: 3 Vessels Cord presentations: no nuchal cord Cord Blood was obtained: Yes Mother & Baby Disposition Disposition Mom & Baby to Maternity; Good: Yes Mom transferred to: Other Baby to NICU: No () DARRELL BASS MD May 11, 2018 22:38
[2018-05-11 22:45] VITALS: BP 115/65; PULSE 86; RESP 20
[2018-05-11] MEDS ORDERED: WITCH HAZEL/GLYCERIN PAD PR PRN (23:00)
[2018-05-11] MEDS ORDERED: ZOLPIDEM 5 MG TAB PO PRN (23:00)
[2018-05-11] MEDS ORDERED: CARBOPROST 250 MCG INJ IM PRN (23:00)
[2018-05-11] MEDS ORDERED: METHYLERGONOVINE 0.2 MG INJ IM PRN (23:00)
[2018-05-11] MEDS ORDERED: MISOPROSTOL 200 MCG TAB PR PRN (23:00)
[2018-05-11] MEDS ORDERED: BENZOCAINE 20% 56 ML SPRAY TOP PRN (23:00)
[2018-05-11] MEDS ORDERED: OXYTOCIN 30 UNITS/LR 500 ML IV PRN (23:00)
[2018-05-11] MEDS ORDERED: OXYCODONE/ASPIRIN (4.88/325) TAB PO PRN (23:00)
[2018-05-11] MEDS ORDERED: LANOLIN HPA 1 PKT TOP PRN (23:00)
[2018-05-11] MEDS: IBUPROFEN 600 MG TAB PO SCH (23:57)
[2018-05-12 05:13] VITALS: BP 118/64; PULSE 78; RESP 20
[2018-05-12] MEDS: IBUPROFEN 600 MG TAB PO SCH ×4 (05:37→23:33)
[2018-05-12 07:40] VITALS: BP 105/63; PULSE 59; RESP 18
[2018-05-12] MEDS: SENNA/DOCUSATE NA (8.6MG/50MG) TAB PO SCH ×2 (10:33→20:59)
[2018-05-12] MEDS: OXYCODONE/ASPIRIN (4.88/325) TAB PO PRN ×2 (10:33→21:08)
--- NOTE | 2018-05-12 11:56 | PAC ---
Date/Time of Note Date/Time of Note DATE: 05/12/18 TIME: 11:55 Post-Anesthesia Notes Post-Anesthesia Note Last documented vital signs Vital Signs Date Temp Pulse Resp B/P (MAP) Pulse Ox O2 O2 Flow FiO2 Time Delivery Rate 05/12/18 98.0 59 18 105/63 Room Air 07:40 (77) Activity: WNL Respiratory function: WNL Cardiovascular function: WNL Mental status: Baseline Pain reasonably controlled: Yes Hydration appropriate: Yes Nausea/Vomiting absent: Yes HERB EVERETT MD May 12, 2018 11:56
[2018-05-12 12:00] VITALS: BP 110/64; RESP 20
[2018-05-12 16:00] VITALS: BP 111/67; PULSE 62; RESP 18
[2018-05-12 20:00] VITALS: BP 107/107; PULSE 67; RESP 20
[2018-05-13 04:00] VITALS: BP 99/59; PULSE 59; RESP 17
[2018-05-13] MEDS: IBUPROFEN 600 MG TAB PO SCH ×2 (05:59→13:02)
[2018-05-13 08:00] VITALS: BP 116/66; PULSE 65; RESP 18
[2018-05-13] MEDS ORDERED: DIPHTH/TET/ACEL PERTUSS (ADULT) 0.5 ML VIAL IM* ONE (09:00)
[2018-05-13] MEDS: SENNA/DOCUSATE NA (8.6MG/50MG) TAB PO SCH (09:19)
--- NOTE | 2018-05-13 11:22 | PN ---
Date/Time of Note Date/Time of Note DATE: 05/13/18 TIME: 11:20 OB Subjective Subjective Subjective Late entry note. Patient seen at 1999 yesterday PPD# 1 Patient is doing well. She denies nausea, vomiting, shortness of breath, chest pain, headache. She has been ambulating without difficulty, tolerating regular diet. Pain is well controlled on current medications OB Objective Objective Objective VS - Last 72 Hours, by Label Date Temp Pulse Resp B/P (MAP) Pulse Ox O2 O2 Flow FiO2 Time Delivery Rate 05/13/18 97.7 59 17 99/59 (72) Room Air 04:00 05/12/18 98.6 67 20 107/107 Room Air 20:00 (107) 05/12/18 99.1 62 18 111/67 Room Air 16:00 (82) 05/12/18 98.3 20 110/64 Room Air 12:00 (79) 05/12/18 98.0 59 18 105/63 Room Air 07:40 (77) 05/12/18 98.6 78 20 118/64 Room Air 05:13 (82) 05/11/18 98.6 86 20 115/65 Room Air 22:45 (82) 05/10/18 98.3 106 20 108/69 Room Air 18:19 (82) General: AAO X 3, comfortable, NAD, appropriate mood and affect. ABD: +BS. Soft, non-tender. Uterus 2 cm below umbilicus Flank: No CVA tenderness (B/L) LE: Mild edema. No clubbing, cyanosis, thigh or calf tenderness (B/L). Homans 'sign is negative Laboratory Tests Test 05/12/18 07:14 White Blood Count 5.9 10^3/ul Red Blood Count 2.87 10^6/ul Hemoglobin 9.5 g/dl Hematocrit 27.7 % Mean Corpuscular Volume 96.5 fl Mean Corpuscular Hemoglobin 33.1 pg Mean Corpuscular Hemoglobin Concent 34.3 g/dl Red Cell Distribution Width 14.6 % Platelet Count 83 10^3/UL Mean Platelet Volume 12.3 fl Immature Granulocytes % 0.500 % Neutrophils % 75.8 % Lymphocytes % 16.8 % Monocytes % 6.3 % Eosinophils % 0.3 % Basophils % 0.3 % Nucleated Red Blood Cells % 0.0 /100WBC Immature Granulocytes # 0.030 10^3/ul Neutrophils # 4.5 10^3/ul Lymphocytes # 1.0 10^3/ul Monocytes # 0.4 10^3/ul Eosinophils # 0.0 10^3/ul Basophils # 0.0 10^3/ul Nucleated Red Blood Cells # 0.0 10^3/ul OB Assessment/Plan Other plan: 22-year-old s/p normal vaginal delivery at 38 weeks and 4 days. PPD#1 - AF, VSS - Contraception methods with R/B/A/FR discussed - Continue care - Discharge home tomorrow - Rx and instruction given - Follow up in 2 and 6 weeks at clinic SCOTT RAHMAN May 13, 2018 11:22
--- NOTE | 2018-05-13 11:24 | DS ---
Date/Time of Note Date/Time of Note DATE: 05/13/18 TIME: 11:23 Obstetrical Discharge Record Final Diagnosis Final Diagnosis: Term delivered Other Final Diagnosis Final diagnosis : 1. Single intrauterine at 38 weeks and 4 days 2. Cholestasis of 22-year-old s/p normal vaginal delivery at 38 weeks and 4 days. PPD#1. course was unremarkable. She is ambulating and tolerating regular diet. Pain is controlled on current medication. She is voiding without difficulty. - AF, VSS - Contraception methods with R/B/A/FR discussed - Continue care - Discharge home tomorrow - Rx and instruction given - Follow up in 2 and 6 weeks at clinic Condition on Discharge Physical Assessment Voiding: Yes Bowel Movement: Yes Breast: Soft, non-tender Calf Tenderness: No Patient Condition: Stable SCOTT RAHMAN May 13, 2018 11:24
[2018-05-13 16:00] VITALS: BP 113/61; PULSE 71; RESP 16
== END 2018-05-13 16:05 | disposition home or self-care (01) | DRG 805 ==
LOC: OBT 16:06 → L-D 16:07 → OBT 21:50 → L-D 05-11 02:04 → PP1 05-11 22:48
PROVIDERS: ADMIT Obstetrics & Gynecology; ATTEND Obstetrics & Gynecology
PROC: 10E0XZZ Delivery of Products of Conception, External Approach (ICD-10-PCS; principal; 2018-05-11)
DX: O36.8130 Decreased fetal movements, third trimester, not applicable or unspecified (principal); K83.1 Obstruction of bile duct; Z37.0 Single live birth; O26.62 Liver and biliary tract disorders in childbirth; O99.62 Diseases of the digestive system complicating childbirth; A08.4 Viral intestinal infection, unspecified; O99.824 Streptococcus B carrier state complicating childbirth; Z3A.38 38 weeks gestation of pregnancy
CPT/HCPCS: 36415; 62319; 76818; 81001; 85025; 85610; 85730; 86592; 86850; 86870; 86885; 86900; 86901; 87340; 96360; 96361; G0463; J0290; J2590; J2790; J3010; J7120; J7121

== ENCOUNTER 2018-07-14 21:08 | Emergency (ER) | payer OTHER ==
[~2018-07-14] VITALS: Ht 160 cm; Wt 79.7 kg
[~2018-07-14 21:08] MED LIST changes: +CALC-143 PO; +FER325 PO; +PREN1TAB13 PO
[2018-07-14 21:19] VITALS: Ht 160 cm; Wt 79.7 kg
--- NOTE | 2018-07-15 01:35 | ERD ---
ER Documentation Chief Complaint Chief Complaint L eye redness x 1 week HPI This is a 22-year-old female with no significant past medical history who is presenting with issues with her eyes. The patient reports blood around the iris of her left eye. The patient does not recall exactly how it happened. She does not endorse any trauma or injury. She does not endorse any significant coughing. She does not endorse any pain to the eye. She does not endorse any visual field or visual acuity deficits. The patient also reports swelling to the right upper eyelid that is painful that started a few days ago as well. She does not endorse any ocular complaints to the right eye. The patient denies feeling sick recently. The patient denies fever or chills. The patient has had no headache or vision changes. The patient does not endorse neck or back pain. The patient denies lightheadedness or dizziness. The patient has had no chest pain or trouble breathing. The patient denies nausea or vomiting. The patient denies abdominal pain. The patient denies changes to bowel movements or urination. The patient has had no focal deficits. The patient has had no weakness or numbness or tingling to the face or extremities. ROS All systems reviewed and are negative except as per history of present illness. Medications Home Meds Active Scripts Cephalexin* (Keflex*) 500 Mg Capsule, 500 MG PO QID for 7 Days, CAP Prov:DAV OLSON MD 05/18/17 Acetaminophen* (Tylophen*) 500 Mg Capsule, 1 CAP PO Q6H PRN for PAIN AND OR ELEVATED TEMP, #20 CAP Prov:DAV OLSON MD 05/18/17 Reported Medications Calcium Citrate/Vitamin D (Citracal-Vitamin D 200 MG-250) 1 Each Tablet, 1 EACH PO DAILY, TAB 05/10/18 Ferrous Sulfate* (Ferrous Sulfate*) 325 Mg Tabec, 325 MG PO DAILY, TAB 05/10/18 Pnv95/Ferrous Fumarate/FA ( Vitamins Tablet) 1 Each Tablet, 1 EACH PO DAILY, TAB 05/10/18 Allergies Allergies: Coded Allergies: No Known Allergy (Unverified , 05/18/17) PMhx/Soc Medical and Surgical Hx: pt denies Medical Hx, pt denies Surgical Hx History of Surgery: No Anesthesia Reaction: No Hx Neurological Disorder: No Hx Respiratory Disorders: No Hx Cardiac Disorders: No Hx Psychiatric Problems: No Hx Miscellaneous Medical Probl: Yes (Kidney infections during ) Hx Alcohol Use: No Hx Substance Use: No Hx Tobacco Use: No Smoking Status: Never smoker FmHx Family History: No diabetes Physical Exam Vitals Vital Signs Date Temp Pulse Resp B/P (MAP) Pulse Ox O2 O2 Flow FiO2 Time Delivery Rate 07/14/18 98.3 77 16 123/67 100 21:19 (85) Physical Exam Const: No acute distress Head: Atraumatic Eyes: Small left subconjunctival hemorrhage. Right upper eyelid chalazion. Pupils equal, round, reactive to light. No visual field or visual acuity deficits. ENT: Normal External Ears, Nose and Mouth. Neck: Full range of motion. No meningismus. Resp: Clear to auscultation bilaterally Cardio: Regular rate and rhythm, no murmurs Abd: Soft, non tender, non distended. Normal bowel sounds Skin: No petechiae or rashes Back: No midline or flank tenderness Ext: No cyanosis, or edema Neur: Awake and alert Psych: Normal Mood and Affect Procedures/MDM MDM The patient has a small left subconjunctival hemorrhage. The patient does not have any evidence of emergent ocular trauma or injury. I do not suspect globe rupture. There is no evidence of infection. She has a mild right upper eyelid chalazion. There is no evidence of infection at this time. The patient may apply warm compresses and use Tylenol and/or Motrin as needed. TREATMENT/DISPOSITION The patient did not require any emergent treatment. DISCHARGE Upon reevaluation of the patient, symptoms have improved. No emergent diagnoses were identified. At this time, I feel that the patient stable for discharge. The patient was instructed to follow-up with a primary care physician in 1-3 days. The patient will be given strict precautions with which to return to the emergency department. Prescriptions: Ibuprofen The patient's blood pressure was elevated at greater than 120/80 while in the emergency department. The patient was otherwise stable with no evidence of hypertensive urgency or emergency. The patient does not require admission for blood pressure control. I have discussed with the patient the risks of hypertension. I have instructed the patient to return to the ER for any new or worsening symptoms including chest pain, shortness of breath, headache, blurred vision, confusion, nausea, vomiting or LOC. I have advised the patient to follow up with the primary care physician for outpatient monitoring and treatment for hypertension in 1-3 days. Disclaimer: Inadvertent spelling and grammatical errors are likely due to EHR/dictation software use and do not reflect on the overall quality of patient care. Note that the electronic time recorded on this note does not necessarily reflect the actual time of the patient encounter. Departure Diagnosis: Primary Impression: Subconjunctival hemorrhage of left eye Additional Impression: Chalazion of left upper eyelid Condition: Stable Patient Instructions: Chalazion, Subconjunctival Hemorrhage Additional Instructions: Thank you for for coming to [facility] for your care today. Please ask your nurse or provider if you have questions about your care today and do not leave until all your questions have been answered. Please use any medications given as directed and follow-up with your doctor (or the doctor you were referred to) in the next 1-3 days. If you do not have a primary care doctor you may [place] [facility] [place] [facility] (listed below). You may also use motrin and tylenol as needed for fever and/or pain unless ins tructed otherwise by your provider or nurse. Indications for more urgent follow- up have been discussed, but you may return to the Emergency Department at ANY time for any worrisome or worsening symptoms. If you have abdominal pain, please know that no test or exam you received is perfect and you should follow up within 8 hours for continued pain. If you had any imaging studies today, such as an X-Ray or CT Scan, these studies will be reviewed later by a radiologist. You will be called if there are importa nt findings that were not identified today, so make sure the contact information you provided at registration is correct. If you received any narcotic pain control medicine today, such as Vicodin, Morphine or Dilaudid, your coordination and judgment may be affected for a number of hours. Please do not drive or operate heavy machinery, and you may want someone to assist you at home. If you were given a prescription for narcotic medication, be aware that it is very addictive- use sparingly and only if necessary. PLEASE SEEK FURTHER EVALUATION AND MANAGEMENT AT YOUR DOCTORS OFFICE WITHIN THE NEXT 1-3 DAYS. IT IS YOUR RESPONSIBILITY TO MAKE AN APPOINTMENT FOR FOLOW-UP CARE. IF YOU HAVE A PRIMARY DOCTOR, PLEASE CALL THEIR OFFICE TO SCHEDULE AN APPOINTMENT FOR FOLLOW UP. IF YOU DO NOT HAVE A PRIMARY DOCTOR YOU CAN CALL OUR PHYSICIAN REFERRAL HOTLINE AT IF YOU CAN NOT AFFORD TO SEE A PHYSICIAN YOU CAN CHOSE FROM THE FOLLOWING [facility]: [facility] [address] [facility] [address] [facility]. [facility] [address] [facility] [address] [facility] [address] [facility]. [facility]. [address] KEV SPRAGUE MD Jul 15, 2018 01:35
[2018-07-15 01:50] VITALS: BP 119/81; PULSE 72; RESP 16
== END 2018-07-15 01:51 | disposition home or self-care (01) ==
LOC: E/R 21:08
DX: H11.32 Conjunctival hemorrhage, left eye (principal); H00.14 Chalazion left upper eyelid
CPT/HCPCS: 99282

== ENCOUNTER 2018-10-08 16:40 | Emergency (ER) | payer OTHER ==
[~2018-10-08] VITALS: Ht 157.5 cm; Wt 80.0 kg
[2018-10-08 17:02] VITALS: BP 114/69; PULSE 85; RESP 20; Ht 157.5 cm; Wt 80.0 kg
[2018-10-08] MEDS ORDERED: CEPH-443 PO (17:43)
--- NOTE | 2018-10-08 19:56 | ERD ---
ER Documentation Chief Complaint Chief Complaint c/o lower back pain x4 days HPI This patient is a pleasant 22-year-old female presenting to the emergency department complaining of bilateral mid back pain intermittently for the past 4 days. Symptoms are mild. She states her urine is a dark yellow color. She denies any fevers, chills, abdominal pain, vaginal discharge, dysuria, or other symptoms at this time. ROS All systems reviewed and are negative except as per history of present illness. Medications Home Meds Active Scripts Cephalexin* (Keflex*) 500 Mg Capsule, 500 MG PO QID for 5 Days, CAP Prov:GERONIMO MAZARIEGOS PA-C 10/08/18 Cephalexin* (Keflex*) 500 Mg Capsule, 500 MG PO QID for 7 Days, CAP Prov:DAV OLSON MD 05/18/17 Acetaminophen* (Tylophen*) 500 Mg Capsule, 1 CAP PO Q6H PRN for PAIN AND OR ELEVATED TEMP, #20 CAP Prov:DAV OLSON MD 05/18/17 Reported Medications Calcium Citrate/Vitamin D (Citracal-Vitamin D 200 MG-250) 1 Each Tablet, 1 EACH PO DAILY, TAB 05/10/18 Ferrous Sulfate* (Ferrous Sulfate*) 325 Mg Tabec, 325 MG PO DAILY, TAB 05/10/18 Pnv95/Ferrous Fumarate/FA ( Vitamins Tablet) 1 Each Tablet, 1 EACH PO DAILY, TAB 05/10/18 Allergies Allergies: Coded Allergies: No Known Allergy (Unverified , 05/18/17) PMhx/Soc History of Surgery: No Anesthesia Reaction: No Hx Neurological Disorder: No Hx Respiratory Disorders: No Hx Cardiac Disorders: No Hx Psychiatric Problems: No Hx Miscellaneous Medical Probl: Yes (Kidney infections during ) Hx Alcohol Use: No Hx Substance Use: No Hx Tobacco Use: No Smoking Status: Never smoker FmHx Family History: No diabetes Physical Exam Vitals Vital Signs Date Temp Pulse Resp B/P (MAP) Pulse Ox O2 O2 Flow FiO2 Time Delivery Rate 10/08/18 99.5 85 20 114/69 100 17:02 (84) Physical Exam Const: No acute distress Head: Atraumatic Eyes: Normal Conjunctiva ENT: Normal External Ears, Nose and Mouth. Neck: Full range of motion. No meningismus. Resp: Clear to auscultation bilaterally Cardio: Regular rate and rhythm, no murmurs Abd: Soft, non tender, non distended. Normal bowel sounds Skin: No petechiae or rashes Back: No midline or flank tenderness. No CVA tenderness. Ext: No cyanosis, or edema Neur: Awake and alert Psych: Normal Mood and Affect Results 24 hrs Laboratory Tests Test 10/08/18 17:40 10/08/18 17:42 Bedside Urine pH (LAB) 5.5 Bedside Urine Protein (LAB) Negative Bedside Urine Glucose (UA) Negative Bedside Urine Ketones (LAB) Negative Bedside Urine Blood 2+ Bedside Urine Nitrite (LAB) Negative Bedside Urine Leukocyte Esterase (L 1+ POC Beta HCG, Qualitative NEGATIVE Procedures/MDM 22-year-old female presents to the emergency department with signs and symptoms most consistent with uncomplicated urinary tract infection. Patient had no CVA tenderness. She is nontoxic, well-appearing, with stable vital signs. She is afebrile. I doubt pyelonephritis. I doubt acute surgical abdomen. I doubt septic stone. I doubt emergent pathology. Patient will be discharged home with prescription for Keflex and advised to return here immediately for any new, worsening, or concerning symptoms. Patient in agreement with the diagnosis, plan, need for follow-up, return precautions. Departure Diagnosis: Primary Impression: UTI (urinary tract infection) Urinary tract infection type: acute cystitis Hematuria presence: without hematuria Qualified Codes: N30.00 - Acute cystitis without hematuria Condition: Fair Patient Instructions: Understanding Urinary Tract Infections (UTIs) Additional Instructions: Llame al doctor MAANA y lesley reddy SENDY PARA DENTRO DE 1-2 BENNETT.Dgale a la secretaria que nosotros le instruimos hacer esta sendy.Avise o llame si deluna condicin se empeora antes de la sendy. Regresa aqui si peor o no mejor. GERONIMO MAZARIEGOS PA-C Oct 08, 2018 19:56
== END 2018-10-08 18:03 | disposition home or self-care (01) ==
LOC: FTE 16:40
DX: N30.00 Acute cystitis without hematuria (principal)
CPT/HCPCS: 81003; 81025; Z7502; 99283